=== PATIENT | female | born 1985 | race Caucasian/White ===

== ENCOUNTER 2024-06-16 12:41 | Observation (INO) ==
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
[2024-06-16 14:31] LABS: BASOPHILS % (AUTO) 0.4 %; EOSINOPHILS # (AUTO) 0.1 10^3/uL (0.0-0.7); EOSINOPHILS % (AUTO) 0.5 %; HGB - HEMOGLOBIN 12.4 g/dL (12.0-16.0); LYMPHOCYTES # (AUTO) 1.3 10^3/uL (1.5-3.5); LYMPHOCYTES % (AUTO) 12.4 %; MEAN CORPUSCULAR HEMOGLOBIN 26.4 pg (27.0-31.0); MEAN CORPUSCULAR HGB CONC 32.6 g/dL (32.0-36.0); MEAN PLATELET VOLUME 9.3 fL (7.9-10.8); MONOCYTES # (AUTO) 0.8 10^3/uL (0.0-1.0); MONOCYTES % (AUTO) 7.5 %; NEUTROPHILS # (AUTO) 8.3 10^3/uL (1.5-6.6); PLT - PLATELET COUNT 311 10^3/uL (130-450); RED BLOOD COUNT 4.69 10^6/uL (4.20-5.40); RED CELL DISTRIBUTION WIDTH 14.2 % (12.0-15.0); WHITE BLOOD COUNT 10.5 x10^3/uL (4.8-10.8)
[2024-06-16] MEDS: LACTATED RINGERS 1,000 ML IV STA (14:36)
[2024-06-16 14:37] LABS: MAGNESIUM 1.6 mg/dL (1.7-2.3)
[2024-06-16 14:43] LABS: ACETAMINOPHEN 3.3 ug/mL; ALBUMIN 3.8 g/dL (3.2-5.5); ALBUMIN/GLOBULIN RATIO 1.3 (1.0-2.2); ALKALINE PHOSPHATASE 63 IU/L (42-121); ALT ALANINE AMINOTRANSFERASE 48 IU/L (10-60); AST ASPARTATE AMINOTRANSFERASE 67 IU/L (10-42); BILIRUBIN,TOTAL 0.5 mg/dL (0.2-1.0); BUN - BLOOD UREA NITROGEN 21 mg/dL (6-20); CALCIUM 9.3 mg/dL (8.5-10.3); CARBON DIOXIDE - CO2 24 mmol/L (21-32); CHLORIDE 104 mmol/L (101-111); CK- CREATINE KINASE 43 IU/L (30-223); CREATININE 0.7 mg/dL (0.6-1.3); ETOH - ETHANOL < 10.0 mg/dL; GFR - MDRD 94 (>89); GLUCOSE 125 mg/dL (74-104); POTASSIUM 3.5 mmol/L (3.5-4.5); SALICYLATE < 1.5 mg/dL; SODIUM 135 mmol/L (135-145); TOTAL PROTEIN 6.8 g/dL (6.4-8.9)
[2024-06-16 15:30] LABS: COCAINE SCREEN URINE NEGATIVE (NEGATIVE); OPIATE SCREEN, URINE NEGATIVE (NEGATIVE); THC CANNABINOID SCREEN, URINE NEGATIVE (NEGATIVE)
[2024-06-16 15:31] LABS: AMPHETAMINE SCREEN,URINE NEGATIVE (NEGATIVE); BARBITURATE SCREEN,UR NEGATIVE (NEGATIVE); BENZODIAZEPINES SCREEN, URINE NEGATIVE (NEGATIVE); BUPRENORPHINE SCREEN, URINE POSITIVE (NEGATIVE); METHADONE SCREEN, URINE NEGATIVE (NEGATIVE); METHAMPHETAMINES SCREEN, URINE POSITIVE (NEGATIVE); OXYCODONE SCREEN, URINE NEGATIVE (NEGATIVE); TRICYCLIC ANTIDEPRESSANT,URINE NEGATIVE (NEGATIVE)
[2024-06-16] MEDS: diazePAM INJ 5 MG/ML SYRINGE IVP STA (15:42)
[2024-06-16] MEDS: LORazepam 2 MG/ML VIAL IVP STA (17:21)
[2024-06-16] MEDS: ONDANSETRON 4 MG/2 ML VIAL IVP STA (17:22)
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
[2024-06-16] MEDS ORDERED: SODIUM CHLORIDE FLUSH 0.9% 10 ML SYRINGE IVP PRN (19:03)
[2024-06-16] MEDS ORDERED: LORazepam 2 MG/ML VIAL IVP PRN ×2 (19:03→19:24)
[2024-06-16] MEDS ORDERED: ACETAMINOPHEN 325 MG TABLET PO PRN (19:03)
[2024-06-16] MEDS ORDERED: ONDANSETRON ODT 4 MG TABLET TL PRN (19:03)
[2024-06-16] MEDS ORDERED: ONDANSETRON 4 MG/2 ML VIAL IVP PRN (19:03)
[2024-06-16] MEDS ORDERED: DICYCLOMINE 10 MG CAPSULE PO PRN (19:12)
[2024-06-16 19:23] LABS: BASOPHILS % (AUTO) 0.2 %; EOSINOPHILS % (AUTO) 0.1 %; HCT - HEMATOCRIT 37.4 % (37.0-47.0); HGB - HEMOGLOBIN 12.6 g/dL (12.0-16.0); LYMPHOCYTES % (AUTO) 11.2 %; MEAN CORPUSCULAR HGB CONC 33.7 g/dL (32.0-36.0); MEAN CORPUSCULAR VOLUME 80.1 fL (81.0-99.0); MONOCYTES # (AUTO) 0.4 10^3/uL (0.0-1.0); MONOCYTES % (AUTO) 4.4 %; NEUTROPHILS # (AUTO) 7.5 10^3/uL (1.5-6.6); PLT - PLATELET COUNT 316 10^3/uL (130-450); RED BLOOD COUNT 4.67 10^6/uL (4.20-5.40)
[2024-06-16 19:31] LABS: INR 1.2 (0.8-1.2); PT - PROTHROMBIN TIME 12.8 secs (9.9-12.6)
[2024-06-16 19:33] LABS: ALBUMIN 3.8 g/dL (3.2-5.5); ALBUMIN/GLOBULIN RATIO 1.1 (1.0-2.2); BILIRUBIN,TOTAL 0.5 mg/dL (0.2-1.0); CALCIUM 9.6 mg/dL (8.5-10.3); CREATININE 0.6 mg/dL (0.6-1.3); POTASSIUM 4.2 mmol/L (3.5-4.5); TOTAL PROTEIN 7.4 g/dL (6.4-8.9)
[2024-06-16] MEDS: oxyCODONE 5 MG TABLET PO PRN (21:30)
[2024-06-17] MEDS: SODIUM CHLORIDE FLUSH 0.9% 10 ML SYRINGE IVP SCH (00:02)
[2024-06-17] MEDS: cloNIDine 0.1 MG TABLET PO PRN (00:16)
[2024-06-17 05:19] LABS: BASOPHILS % (AUTO) 0.3 %; EOSINOPHILS # (AUTO) 0.1 10^3/uL (0.0-0.7); EOSINOPHILS % (AUTO) 0.5 %; HCT - HEMATOCRIT 37.6 % (37.0-47.0); HGB - HEMOGLOBIN 12.8 g/dL (12.0-16.0); LYMPHOCYTES # (AUTO) 1.7 10^3/uL (1.5-3.5); LYMPHOCYTES % (AUTO) 17.1 %; MEAN CORPUSCULAR HEMOGLOBIN 27.2 pg (27.0-31.0); MEAN CORPUSCULAR VOLUME 79.8 fL (81.0-99.0); MEAN PLATELET VOLUME 9.2 fL (7.9-10.8); MONOCYTES # (AUTO) 0.7 10^3/uL (0.0-1.0); MONOCYTES % (AUTO) 6.6 %; NEUTROPHILS # (AUTO) 7.4 10^3/uL (1.5-6.6); NEUTROPHILS % (AUTO) 75.3 %; PLT - PLATELET COUNT 357 10^3/uL (130-450); RED BLOOD COUNT 4.71 10^6/uL (4.20-5.40); RED CELL DISTRIBUTION WIDTH 14.2 % (12.0-15.0); WHITE BLOOD COUNT 9.9 x10^3/uL (4.8-10.8)
[2024-06-17 05:31] LABS: CALCIUM 9.4 mg/dL (8.5-10.3); CREATININE 0.7 mg/dL (0.6-1.3); MAGNESIUM 1.8 mg/dL (1.7-2.3); POTASSIUM 3.8 mmol/L (3.5-4.5)
[2024-06-17] MEDS ORDERED: MULTIVITAMIN 10 ML, THIAMINE INJ 100 MG, FOLIC ACID INJ 1 MG in SODIUM CHLORIDE 0.9% 1,... IV SCH (09:00)
[2024-06-17] MEDS: BUPRENORPHINE/NALOXONE 8-2 MG TAB SL SCH (10:23)
--- NOTE | 2024-06-17 14:41 | PROVIDER PROGRESS NOTE ---
Subjective Subjective Subjective: Patient states that she feels better today. She does state that her pain is improved. She has no abdominal pain, no nausea, no vomiting, she is also feeling less anxious. She is coming from [facility], where she was receiving detox services. Current Medications Current Medications Current Medications: Current Medications Generic Name Dose Route Start Last Admin Trade Name Freq PRN Reason Stop Dose Admin Acetaminophen 650 mg 06/16/24 19:03 Acetaminophen 325 Mg Tablet PO Q4HR PRN Pain 1 to 4, or Fever Buprenorphine HCl 1 tab 06/17/24 09:00 06/17/24 10:23 Buprenorphine/Naloxone 8-2 Mg Tab SL Not Given DAILY SARA Clonidine HCl 0.1 mg 06/16/24 19:11 06/17/24 00:16 Clonidine 0.1 Mg Tablet PO 0.1 mg Q8H PRN Administration blood pressure >160 or for anx Dicyclomine HCl 10 mg 06/16/24 19:12 Dicyclomine 10 Mg Capsule PO QID PRN Abdominal Pain Lorazepam 1 mg 06/16/24 19:24 Lorazepam 2 Mg/Ml Vial IVP Q8H PRN Anxiety Protocol Ondansetron HCl 4 mg 06/16/24 19:03 Ondansetron Odt 4 Mg Tablet TL Q6HR PRN Nausea / Vomiting Ondansetron HCl 4 mg 06/16/24 19:03 Ondansetron 4 Mg/2 Ml Vial IVP Q6HR PRN Nausea / Vomiting Oxycodone HCl 5 mg 06/16/24 19:03 06/16/24 21:30 Oxycodone 5 Mg Tablet PO 5 mg Q4HR PRN Administration Pain 5 to 7 Sodium Chloride 10 ml 06/17/24 01:00 06/17/24 10:23 Sodium Chloride Flush 0.9% 10 Ml Syringe IVP 10 ml 0100,0900,1700 SARA Administration Sodium Chloride 10 ml 06/16/24 19:03 Sodium Chloride Flush 0.9% 10 Ml Syringe IVP PRN PRN NEEDED PER PROVIDER ORDERS Objective Vital Signs/Intake & Output Reviewed Vital Signs: Yes Intake & Output: Intake & Output 06/15/24 06/16/24 06/17/24 06/18/24 04:59 05:59 05:59 05:59 Intake Total 899 / 899 875 / 875 Balance 899 / 899 875 / 875 Weight (kg) 97 kg Objective General Appearance: positive No acute distress, Anxious and Lethargic Eyes Bilateral: positive Normal inspection, PERRL and EOMI ENT: positive ENT inspection nml, Pharynx nml and No signs of dehydration Neck: positive Nml inspection, Thyroid nml and No JVD Respiratory: positive Chest non-tender, No respiratory distress and Breath sounds nml; negative Wheezes, Rales or Rhonchi Cardiovascular: positive Regular rate & rhythm, No murmur and No gallop Abdomen: positive Non-tender, No organomegaly, Nml bowel sounds and No distention; negative Tenderness, Guarding, Hepatomegaly or Splenomegaly Back: positive Nml inspection; negative CVA tenderness (R) or CVA tenderness (L) Skin: positive Color nml, No rash and Warm Extremities: positive Non-tender, Full ROM and Nml appearance Neurologic/Psychiatric: positive Oriented x3 and Depressed mood/affect Lab Results 06/17/24 05:00 06/17/24 05:00 Other Labs: Lab Results x24hrs 06/17/24 06/16/24 06/16/24 Range/Units 05:00 19:16 15:00 WBC 9.9 9.0 (4.8-10.8) x10^3/uL RBC 4.71 4.67 (4.20-5.40) 10^6/uL Hgb 12.8 12.6 (12.0-16.0) g/dL Hct 37.6 37.4 (37.0-47.0) % MCV 79.8 L 80.1 L (81.0-99.0) fL MCH 27.2 27.0 (27.0-31.0) pg MCHC 34.0 33.7 (32.0-36.0) g/dL RDW 14.2 14.0 (12.0-15.0) % Plt Count 357 316 (130-450) 10^3/uL MPV 9.2 9.0 (7.9-10.8) fL Neut # (Auto) 7.4 H 7.5 H (1.5-6.6) 10^3/uL Lymph # (Auto) 1.7 1.0 L (1.5-3.5) 10^3/uL Corson # (Auto) 0.7 0.4 (0.0-1.0) 10^3/uL Eos # (Auto) 0.1 0.0 (0.0-0.7) 10^3/uL Baso # (Auto) 0.0 0.0 (0.0-0.1) 10^3/uL Absolute Nucleated RBC 0.00 0.00 x10^3/uL Nucleated RBC % 0.0 0.0 /100WBC PT 12.8 H (9.9-12.6) secs INR 1.2 (0.8-1.2) Sodium 136 137 (135-145) mmol/L Potassium 3.8 4.2 (3.5-4.5) mmol/L Chloride 104 104 (101-111) mmol/L Carbon Dioxide 25 24 (21-32) mmol/L Anion Gap 7.0 9.0 (6-13) BUN 14 15 (6-20) mg/dL Creatinine 0.7 0.6 (0.6-1.3) mg/dL Estimated GFR (MDRD) 94 112 (>89) Glucose 109 H 129 H (74-104) mg/dL Calcium 9.4 9.6 (8.5-10.3) mg/dL Magnesium 1.8 (1.7-2.3) mg/dL Total Bilirubin 0.5 (0.2-1.0) mg/dL AST 52 H (10-42) IU/L ALT 49 (10-60) IU/L Alkaline Phosphatase 74 (42-121) IU/L Total Creatine Kinase (30-223) IU/L Total Protein 7.4 (6.4-8.9) g/dL Albumin 3.8 (3.2-5.5) g/dL Globulin 3.6 (2.1-4.2) g/dL Albumin/Globulin Ratio 1.1 (1.0-2.2) Salicylates mg/dL Urine Opiates Screen NEGATIVE (NEGATIVE) Ur Buprenorphine Scrn POSITIVE H (NEGATIVE) Ur Oxycodone Screen NEGATIVE (NEGATIVE) Urine Methadone Screen NEGATIVE (NEGATIVE) Acetaminophen ug/mL Ur Barbiturates Screen NEGATIVE (NEGATIVE) Ur Tricyclics Screen NEGATIVE (NEGATIVE) Ur Phencyclidine Scrn NEGATIVE (NEGATIVE) Ur Amphetamine Screen NEGATIVE (NEGATIVE) U Methamphetamines Scrn POSITIVE H (NEGATIVE) U Benzodiazepines Scrn NEGATIVE (NEGATIVE) Urine Cocaine Screen NEGATIVE (NEGATIVE) U Cannabinoids Screen NEGATIVE (NEGATIVE) Ur Drug Screen Comment CUTOFF CONC BELOW: Ethyl Alcohol mg/dL 06/16/24 Range/Units 14:25 WBC (4.8-10.8) x10^3/uL RBC (4.20-5.40) 10^6/uL Hgb (12.0-16.0) g/dL Hct (37.0-47.0) % MCV (81.0-99.0) fL MCH (27.0-31.0) pg MCHC (32.0-36.0) g/dL RDW (12.0-15.0) % Plt Count (130-450) 10^3/uL MPV (7.9-10.8) fL Neut # (Auto) (1.5-6.6) 10^3/uL Lymph # (Auto) (1.5-3.5) 10^3/uL Corson # (Auto) (0.0-1.0) 10^3/uL Eos # (Auto) (0.0-0.7) 10^3/uL Baso # (Auto) (0.0-0.1) 10^3/uL Absolute Nucleated RBC x10^3/uL Nucleated RBC % /100WBC PT (9.9-12.6) secs INR (0.8-1.2) Sodium 135 (135-145) mmol/L Potassium 3.5 (3.5-4.5) mmol/L Chloride 104 (101-111) mmol/L Carbon Dioxide 24 (21-32) mmol/L Anion Gap 7.0 (6-13) BUN 21 H (6-20) mg/dL Creatinine 0.7 (0.6-1.3) mg/dL Estimated GFR (MDRD) 94 (>89) Glucose 125 H (74-104) mg/dL Calcium 9.3 (8.5-10.3) mg/dL Magnesium 1.6 L (1.7-2.3) mg/dL Total Bilirubin 0.5 (0.2-1.0) mg/dL AST 67 H (10-42) IU/L ALT 48 (10-60) IU/L Alkaline Phosphatase 63 (42-121) IU/L Total Creatine Kinase 43 (30-223) IU/L Total Protein 6.8 (6.4-8.9) g/dL Albumin 3.8 (3.2-5.5) g/dL Globulin 3.0 (2.1-4.2) g/dL Albumin/Globulin Ratio 1.3 (1.0-2.2) Salicylates < 1.5 mg/dL Urine Opiates Screen (NEGATIVE) Ur Buprenorphine Scrn (NEGATIVE) Ur Oxycodone Screen (NEGATIVE) Urine Methadone Screen (NEGATIVE) Acetaminophen 3.3 ug/mL Ur Barbiturates Screen (NEGATIVE) Ur Tricyclics Screen (NEGATIVE) Ur Phencyclidine Scrn (NEGATIVE) Ur Amphetamine Screen (NEGATIVE) U Methamphetamines Scrn (NEGATIVE) U Benzodiazepines Scrn (NEGATIVE) Urine Cocaine Screen (NEGATIVE) U Cannabinoids Screen (NEGATIVE) Ur Drug Screen Comment Ethyl Alcohol < 10.0 mg/dL Assessment/Plan Problem List (1) Withdrawal symptoms, drug or narcotic: Impression: Patient presented with meth and buprenorphine withdrawal. Was having hallucinations, diaphoresis, agitation. Continue Suboxone 8-2mg as needed today. Continue Zofran as needed for nausea, Bentyl for abdominal pain, Ativan for agitation, clonidine for anxiety. Social work following for resources. Qualifiers: Substance type: other psychoactive substance Qualified Code(s): F19.939 - Other psychoactive substance use, unspecified with withdrawal, unspecified
[2024-06-18] MEDS: MELATONIN 3 MG TABLET PO PRN (01:08)
[2024-06-18 04:31] VITALS: O2SAT 95
[2024-06-18 08:52] LABS: BASOPHILS % (AUTO) 0.4 %; EOSINOPHILS # (AUTO) 0.1 10^3/uL (0.0-0.7); EOSINOPHILS % (AUTO) 1.7 %; HCT - HEMATOCRIT 42.5 % (37.0-47.0); HGB - HEMOGLOBIN 13.8 g/dL (12.0-16.0); LYMPHOCYTES # (AUTO) 2.3 10^3/uL (1.5-3.5); LYMPHOCYTES % (AUTO) 33.6 %; MEAN CORPUSCULAR HEMOGLOBIN 26.4 pg (27.0-31.0); MEAN CORPUSCULAR HGB CONC 32.5 g/dL (32.0-36.0); MEAN CORPUSCULAR VOLUME 81.4 fL (81.0-99.0); MEAN PLATELET VOLUME 9.4 fL (7.9-10.8); MONOCYTES # (AUTO) 0.6 10^3/uL (0.0-1.0); MONOCYTES % (AUTO) 8.4 %; NEUTROPHILS # (AUTO) 3.9 10^3/uL (1.5-6.6); NEUTROPHILS % (AUTO) 55.8 %; PLT - PLATELET COUNT 397 10^3/uL (130-450); RED BLOOD COUNT 5.22 10^6/uL (4.20-5.40); RED CELL DISTRIBUTION WIDTH 14.6 % (12.0-15.0); WHITE BLOOD COUNT 6.9 x10^3/uL (4.8-10.8)
[2024-06-18 09:06] LABS: CALCIUM 9.6 mg/dL (8.5-10.3); CREATININE 0.8 mg/dL (0.6-1.3); POTASSIUM 3.4 mmol/L (3.5-4.5)
--- NOTE | 2024-06-18 09:13 | Discharge Summary ---
"Discharge Summary Admit Date: 06/16/24 Discharge Date: 06/18/24 Discharging Provider: Dr. Britton James Code Status: Attempt Resuscitation DIAGNOSES Admission Diagnoses: Withdrawal symptoms, drug or narcotic Discharge Diagnoses with Status of Each Condition: Withdrawal symptoms, drug or narcotic HPI History of Present Illness: Patient is starting to feel better. She is refusing Suboxone at this time. Unable to prescribe methadone as well not able to closely monitor her. She does see a physician out of [facility] in [place], and says that she can make an appointment in the next few days. She has the contact information to do so. She states that she feels well enough to leave. Advised to return if she starts to experience anxiety, and hallucinations, chest pain. CONSULTS | PROCEDURES Consultations: Social work HOSPITAL COURSE Hospital Course: Patient is a 38-year-old female with history of methamphetamine, fentanyl abuse who presented from [facility] at a detox facility. She was apparently noncompliant there, and may have been stealing drugs from other participants of the rehab. When she got here, she was anxious, diaphoretic, and restless. She was started on COWS protocol. Multiple medications were used to help her through her withdrawals. Of note, Suboxone, which would have been the most effective, she refused. She also received clonidine, Bentyl, Ativan. We will give her one dose of methadone prior to her leaving. Do not feel comfortable prescribing methadone without her being in a supervised program in the outpatient setting. She does see child protection specialist in [place], and said that she could set up an appointment in the next few days for continued treatment. She said she did not want assistance in setting this up. She was heavily advised to return if she starts to experience anxiety, and hallucinations, chest pain. She demonstrated understanding. ALLERGIES Allergies Allergy/AdvReac Type Severity Reaction Status Date / Time diphenhydramine (From AdvReac Severe Anaphylaxis Verified 06/16/24 13:02 Triaminic Allergy) MEDICATIONS Ambulatory Orders Medication Instructions Recorded Confirmed No Known Home Medications 06/16/24 06/16/24 PHYSICAL EXAM AT DISCHARGE General Appearance: positive Mild distress and Anxious Eyes Bilateral: positive Normal inspection, PERRL and EOMI ENT: positive Pharynx nml and No signs of dehydration Neck: positive Nml inspection, Thyroid nml, No JVD and Trachea midline Respiratory: positive Chest non-tender, No respiratory distress and Breath sounds nml Cardiovascular: positive Regular rate & rhythm, No murmur and No gallop; negative Systolic murmur Peripheral Pulses: positive 2+ Abdomen: positive Non-tender and Nml bowel sounds; negative Guarding, Rebound, Hepatomegaly, Splenomegaly or Mass Skin: positive Color nml, No rash and Warm Extremities: positive Non-tender, Full ROM, Nml appearance and No pedal edema Neurologic/Psychiatric: positive Oriented x3, Motor nml and Mood/affect nml LABS 06/18/24 08:33 06/17/24 05:00 SEPSIS Current Stage of Sepsis: Ruled out QUALITY (Female Hip Fx Only) Was patient sent home on osteoporosis medication?: No FOLLOW UP Follow Up: Advised extensively to follow-up with her child protection specialist as well as her primary care physician. TIME SPENT Time Spent in Discharge (Minutes): 30 Discharge Plan Discharge Patient Disposition: Home, Self Care Condition: Fair Prescriptions: No Action No Known Home Medications Diet: Regular Health Concerns: You initially came in because you were withdrawing from methamphetamine and fentanyl. You were feeling very anxious, sweaty, and in pain. While you are here, you received medications to help you with your detoxification process. We talked about using Suboxone for your withdrawals, but you did not want to try this at this time. You see the [facility] in [place], and you stated that you can make an appointment in the next few days. Here, you will be continuing your methadone. You were advised heavily to return if your symptoms got worse - if you experienced more anxiety, hallucinations, sweats, pain. You demonstrated understanding. Thank you for allowing us to take care of you, we are glad you're feeling better. Plan of Treatment: 1. Continue to wean off the meth and opioids. 2. Experience less anxiety and pain. 3. Follow up with your PCP and child protection specialist. Print Language: Welsh Patient Instructions: Abuse Meth Abuse and Addiction, ED Narcotic Abuse Stand Alone Forms: PCP List Follow-up Care: [facility] [Other]"
[2024-06-18] MEDS: METHADONE 5 MG TABLET PO ONE (09:31)
--- NOTE | 2024-06-18 11:55 | PHARMACY PROGRESS NOTE ---
Best Possible Medication History Admit Date and Time: 06/16/241809 Processed by: Pharmacy Medications reviewed in ED?: No Medication History completed: In progress (Patient has been asleep for multiple med rec attempts since yesterday. per insurance hx, pt likely not on any pre scription medications currently.) [facility] Statement: As the person ultimately responsible for medication therapy, providers are able to order a medication from an existing home medication list in [facility] via the "Reconcile Routine" prior to Confirmation of that medication by production support developer. Such practice is discouraged except when the physician, in their clinical judgment, deems that a medical need exists for a medication without regard to previous use.
[2024-06-18] MEDS: LORazepam 1 MG TABLET PO STA (13:26)
== END 2024-06-18 14:00 | disposition home or self-care (01) ==
LOC: MS2 12:41 → ED 12:41 → MS2 18:45
PROVIDERS: ADMIT Specialist; ATTEND Specialist
DX: R44.3 Hallucinations, unspecified; F11.13 Opioid abuse with withdrawal; F15.13 Other stimulant abuse with withdrawal; I95.9 Hypotension, unspecified